=== PATIENT | female | born 1990 | race Caucasian/White ===

== ENCOUNTER 2023-08-01 07:52 | Emergency (ER) | payer OTHER, SELFPAY ==
[2023-08-01] VITALS (43 sets, daily range): BP systolic 118–167; BP diastolic 56–86; PULSE 53–105; RESP 10–25; TEMP 36.6; O2SAT 97–100; BMI 23.3
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
[2023-08-01] MEDS: diazePAM 10 MG/2 ML SYRINGE 5 MG IV ×2 (08:12→09:57)
[2023-08-01] MEDS: ONDANSETRON 4 MG/2 ML INJ IV (08:12)
[2023-08-01] MEDS: HYDROMORPHONE 1 MG INJ IV ×4 (08:20→13:51)
[2023-08-01] MEDS: METOCLOPRAMIDE 10 MG/2 ML INJ IV (08:20)
[2023-08-01] MEDS: fentaNYL 100 MCG/2 ML INJ IV (08:45)
[2023-08-01 09:09] LABS: Add Manual Diff / Slide Review NO; Basophils Absolute Auto 0 /uL (0-100); Basophils Percent Auto 0.5 % (0-2); Eosinophils Absolute Auto 200 /uL (0-450); Eosinophils Percent Auto 2.2 % (2-4); Hematocrit 47.6 % (36-46); Hemoglobin 15.9 g/dL (12.0-16.0); Lymphocytes Absolute Auto 2100 /uL (1100-4500); Mean Corpuscular HGB Conc 33.4 % (30-36); Mean Corpuscular Hemoglobin 31.8 PG (26-34); Mean Corpuscular Volume 95.2 fL (80-100); Monocytes Absolute Auto 600 /uL (0-900); Monocytes Percent Auto 7.9 % (3-14); Neutrophils Absolute Auto 4200 /uL (1500-7000); Neutrophils Percent Auto 59.4 % (50-75); Platelet Count 195 X10^3/uL (150-400); Red Cell Distribution Width 12.6 % (11.6-14.8); White Blood Cell Count 7.1 X10^3/uL (4.5-11.0)
[2023-08-01] MEDS: KETOROLAC 30 MG/ML VIAL 15 MG IV (09:10)
[2023-08-01 09:17] LABS: Alanine Aminotransferase 19 IU/L (<35); Albumin 4.4 g/dL (3.5-5.0); Albumin Globulin Ratio 1.6 (1.0-2.8); Alkaline Phosphatase 48 U/L (38-126); Aspartate Aminotransferase 20 IU/L (14-36); BUN Creatinine Ratio 14.1 (6-22); Bilirubin Total 0.5 mg/dL (0.2-1.3); Blood Urea Nitrogen 11 mg/dL (7-17); Calcium 9.1 mg/dL (8.4-10.2); Carbon Dioxide 26 mmol/L (22-32); Chloride 106 mmol/L (98-107); Estimated Glomerular Filt Rate > 60 mL/min (>60); Globulin 2.8 g/dL (1.7-4.1); Glucose 131 mg/dL (70-100); HEMOLYSIS 15 (0-50); Potassium 3.8 mmol/L (3.4-5.1); Sodium 142 mmol/L (137-145); Total Protein 7.2 g/dL (6.3-8.2)
--- NOTE | 2023-08-01 10:03 | PC.NURSE ---
Pt resting in bed and c/o right wrist pain and tightness/pain in fingers. Fingers are pink and sensation is present. Pt a&ox4, but very sleepy. is and RN and at bedside.
[2023-08-01] MEDS: MORPHINE 4 MG/ML INJ IV (12:08)
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
== END 2023-08-01 13:53 | disposition short-term general hospital (02) ==
PROVIDERS: Emergency Provider Emergency Medicine
DX: S52.371A Galeazzi's fracture of right radius, initial encounter for closed fracture (principal); V89.2XXA Person injured in unspecified motor-vehicle accident, traffic, initial encounter
CPT/HCPCS: 73090; 80053; 85025; 96374; 96375; 96376; 99284; J1170; J1885; J2270; J2405; J2765; J3010; J3360